=== PATIENT | male | born 1980 | race African-American/Black ===

== ENCOUNTER 2024-02-02 08:29 | Emergency (ER) | payer OTHER ==
[2024-02-02 08:50] VITALS: BP 137/72; PULSE 76; RESP 14; TEMP 97.8; BMI 23.1
== END 2024-02-02 11:24 | disposition home or self-care (01) ==
LOC: JERFT 08:29
DX: M25.561 Pain in right knee (principal); M25.562 Pain in left knee; M25.571 Pain in right ankle and joints of right foot; M54.50 Low back pain, unspecified; W01.0XXA Fall on same level from slipping, tripping and stumbling without subsequent striking against object, initial encounter
CPT/HCPCS: 72100-TC-FY; 73562-TC-LT-FY; 73562-TC-RT-FY; 73610-TC-RT-FY; 99284-25